=== PATIENT | male | born 1980 | race Hispanic/Latino ===

== ENCOUNTER 2018-05-13 07:45 | Emergency (ER) | payer SELFPAY ==
[2018-05-13] MEDS ORDERED: NA CHLORIDE 0.9% 1,000 ML ONE (08:18)
[2018-05-13 08:56] LABS: Absolute Lymphocytes (CBC) 2.2 K/uL (0.7-4.9); Absolute Monocytes 0.6 K/uL (0.1-1.3); Absolute Neutrophil 7.3 K/uL (1.8-8.0); Basophils % 0.5 % (0-1.3); Eosinophils % 2.1 % (0-4.4); Hematocrit 44.1 % (39.6-49.0); Lymphocytes % 21.4 % (15.3-44.8); MCH 29.9 pg (27.0-35.0); MCV 86.1 fL (80-100); MPV 8.2 fL (7.6-11.3); Monocytes % 5.8 % (3.3-12.3); RBC Red Blood Cell Count 5.12 M/uL (4.33-5.43)
[2018-05-13] MEDS ORDERED: BUPIVACAINE 0.5% PF 10 ML VIAL ONE (09:07)
[2018-05-13] MEDS ORDERED: LIDOCAINE 1% W/EPI 1:100,000 MDV 50 ML VIAL ONE (09:08)
[2018-05-13] MEDS ORDERED: MORPHINE 4 MG/ML SYR ONE (09:10)
[2018-05-13] MEDS ORDERED: ONDANSETRON 4 MG/2 ML VIAL ONE (09:11)
[2018-05-13] MEDS ORDERED: SMZ./TMP. 800/160 MG TABLET ONE (09:37)
--- NOTE | 2018-05-13 09:37 | EDPHYS ---
Physician Documentation [facility] Name: Johnathan Tracey Age: 37 yrs Sex: Male : 1980 Arrival Date: 05/13/2018 Time: 07:49 Bed 15 Private MD: None, None ED Physician Jamaal Pastor HPI: 05/13 08:05 This 37 yrs old Male presents to ER via Ambulatory with complaints of Abscess. cp 08:05 The patient presents with an abscess of the buttocks, The patient presents with cp cellulitis of the buttocks. 08:05 Onset: The symptoms/episode began/occurred yesterday. cp 08:05 Associated signs and symptoms: Pertinent positives: discharge, swelling, Pertinent cp negatives: fever. Historical: - Allergies: 07:57 No Known Allergies; hj - Home Meds: 07:57 Omeprazole Oral [Active]; hj - PMHx: 07:57 GERD; hj - PSHx: 07:57 None; hj - Immunization history:: Adult Immunizations up to date. - Social history:: Smoking status: Patient/guardian denies using tobacco, Patient uses alcohol, occasionally. - Ebola Screening: : Patient negative for fever greater than or equal to 101.5 degrees Fahrenheit, and additional compatible Ebola Virus Disease symptoms Patient denies exposure to infectious person Patient denies travel to an Ebola-affected area in the 21 days before illness onset. ROS: 08:10 Constitutional: Negative for body aches, chills, poor PO intake. cp 08:10 Eyes: Negative for injury, pain, redness, and discharge. cp Exam: 08:15 Constitutional: The patient appears in no acute distress, alert, awake, non-toxic, well cp developed, well nourished. 08:15 Head/Face: Normocephalic, atraumatic. cp 08:15 Eyes: Periorbital structures: appear normal, Conjunctiva: normal, no exudate, no injection, Lids and lashes: appear normal, bilaterally. 08:15 ENT: External ear(s): are unremarkable, Nose: is normal, Mouth: is normal, Posterior pharynx: is normal, airway is patent. 08:15 Chest/axilla: Inspection: normal. 08:15 Cardiovascular: Rate: normal. 08:15 Respiratory: the patient does not display signs of respiratory distress, Respirations: normal, no use of accessory muscles, no retractions, no splinting, no tachypnea. 08:15 Abdomen/GI: Inspection: abdomen appears normal, Palpation: abdomen is soft and non-tender, in all quadrants. 08:15 Skin: abscess, that is small, of the right medial buttock, with induration, with surrounding cellulitis, that is mild. Vital Signs: 07:59 BP 135 / 86; Pulse 83; Resp 18; Temp 98.4; Pulse Ox 97% on R/A; Weight 129.27 kg; hj Height 5 ft. 9 in. (175.26 cm); Pain 10/10; 09:00 BP 125 / 75; Pulse 78; Resp 16; Pulse Ox 99% on R/A; Pain 10/10; jb4 09:56 BP 133 / 81; Pulse 88; Resp 18; Pulse Ox 99% on R/A; Pain 8/10; jb4 07:59 Body Mass Index 42.09 (129.27 kg, 175.26 cm) Procedures: 09:30 I \T\ D: Incision and drainage was performed for an abscess of the right buttocks Prepped cp with Betadine, Anesthetized with 6 ccs of 50/50 mixture 1% lidocaine with epi and 0.5% marcaine. Incised with #11 blade. Drained small amount purulent fluid. bloody fluid. Cultures obtained. Packed with iodoform gauze, Dressing: sterile 4x4 gauze, the patient tolerated the procedure well. MDM: 07:56 Patient medically screened. 09:35 Data reviewed: vital signs, nurses notes, lab test result(s). 09:35 Counseling: I had a detailed discussion with the patient and/or guardian regarding: the historical points, exam findings, and any diagnostic results supporting the discharge/admit diagnosis, lab results, to return to the emergency department if symptoms worsen or persist or if there are any questions or concerns that arise at home. 05/13 08:11 Order name: CBC with Diff; Complete Time: 09:48 cp 05/13 08:11 Order name: BMP; Complete Time: 09:48 cp 05/13 09:48 Interpretation: Normal except: GLUC 115; GFR 76. cp 05/13 08:11 Order name: US Extrmty Nonvasular Limited: right buttock for possible abscess; Complete cp Time: 09:59 05/13 09:59 Interpretation: Report reviewed. 05/13 09:37 Order name: Wound Culture 05/13 08:11 Order name: IV; Complete Time: 08:30 05/13 08:57 Order name: I\T\D Setup; Complete Time: 09:03 cp 05/13 09:27 Order name: Wound dressing; Complete Time: 09:29 cp Administered Medications: 08:30 Drug: NS 0.9% 1000 ml Route: IV; Rate: 1 bolus; Site: left forearm; hj 09:45 Follow up: IV Status: Completed infusion hj 09:10 Drug: Marcaine (0.5 %) 5 ml Volume: 10 ml; Route: Infiltration; tw2 09:10 Drug: Lidocaine-Epinephrine -1%: (1:100,000) 5 ml Volume: 20 ml; Route: Infiltration; tw2 09:10 Drug: morphine 2 mg Route: IVP; Site: left forearm; tw2 09:30 Follow up: Response: No adverse reaction; Pain is decreased hj 09:10 Drug: Zofran 4 mg Route: IVP; Site: left forearm; tw2 09:30 Follow up: Response: No adverse reaction; Nausea is decreased hj 09:30 Drug: Clindamycin 900 mg Route: IVPB; Infused Over: 30 mins; Site: left forearm; hj 09:45 Follow up: IV Status: Completed infusion hj 09:30 Drug: Bactrim (160 mg-800 mg (DS) 1 tablet Route: PO; hj 09:45 Follow up: Response: No adverse reaction Disposition: 20:45 Co-signature as Attending Physician, Jamaal Pastor MD I agree with the assessment and wa plan of care. Disposition: 05/13/18 09:36 Discharged to Home. Impression: Cutaneous abscess of buttock - Right, Cellulitis of buttock - Right. - Condition is Stable. - Discharge Instructions: Skin Abscess, Cellulitis, Adult, Incision and Drainage. - Prescriptions for Clindamycin HCl 300 mg Oral Capsule - take 1 capsule by ORAL route every 6 hours for 10 days; 40 capsule. Bactrim DS 800- 160 mg Oral Tablet - take 1 tablet by ORAL route every 12 hours for 10 days; 20 tablet. Tylenol- Codeine #3 300-30 mg Oral Tablet - take 2 tablets by ORAL route every 6 hours As needed; 15 tablet. - Work release form, Medication Reconciliation Form, Thank You Letter, Antibiotic Education, Prescription Opioid Use form. - Follow up: Private Physician; When: 24 Hours; Reason: Wound Recheck. - Problem is new. - Symptoms have improved. Signatures: Dispatcher [employer] EDMS Andrea Lizarraga RN RN hj Cesaar Gaspar PA PA cp Alison Best RN RN tw2 Richi Serrano RN RN jb4 Jamaal Pastor MD MD co Corrections: (The following items were deleted from the chart) 08:09 08:09 This 37 yrs old Male presents to ER via Ambulatory with complaints of cp Abscess. cp 10:29 09:36 05/13/2018 09:36 Discharged to Home. Impression: Cutaneous abscess of buttock - jb4 Right; Cellulitis of buttock - Right. Condition is Stable. Forms are Medication Reconciliation Form, Thank You Letter, Antibiotic Education, Prescription Opioid Use. Follow up: Private Physician; When: 24 Hours; Reason: Wound Recheck. Problem is new. Symptoms have improved. cp
--- NOTE | 2018-05-13 09:37 | ER ---
Nurse's Notes [facility] Name: Johnathan Tracey Age: 37 yrs Sex: Male : 1980 Arrival Date: 05/13/2018 Time: 07:49 Bed 15 Private MD: None, None Diagnosis: Cutaneous abscess of buttock-Right;Cellulitis of buttock-Right Presentation: 05/13 07:54 Presenting complaint: Patient states: i noticed an abscess on the upper part of my R hj butt cheek near the tail bone yesterday, i tried popping it, it oozed puss a little bit but its getting hard; reports chills last night; pain is 10/10; states a gold ball size abscess;. Transition of care: patient was not received from another setting of care. Onset of symptoms was May 12, 2018. Risk Assessment: Do you want to hurt yourself or someone else? Patient reports no desire to harm self or others. Initial Sepsis Screen: Does the patient meet any 2 criteria? No. Patient's initial sepsis screen is negative. Does the patient have a suspected source of infection? Yes: Skin breakdown/wound. Care prior to arrival: None. 07:54 Method Of Arrival: Ambulatory 07:54 Acuity: ZION 3 hj Triage Assessment: 07:57 General: Appears in no apparent distress. uncomfortable, Behavior is calm, cooperative, hj appropriate for age. Pain: Complains of pain in buttocks Pain currently is 10 out of 10 on a pain scale. EENT: No signs and/or symptoms were reported regarding the EENT system. Neuro: Cardiovascular: Capillary refill < 3 seconds Patient's skin is warm and dry. Respiratory: Airway is patent Respiratory effort is even, unlabored, Respiratory pattern is regular, symmetrical. GI: No signs and/or symptoms were reported involving the gastrointestinal system. : No signs and/or symptoms were reported regarding the genitourinary system. Derm: Abscess located on buttocks Reports pain that is 10 out of 10 on a pain scale. Historical: - Allergies: 07:57 No Known Allergies; hj - Home Meds: 07:57 Omeprazole Oral [Active]; hj - PMHx: 07:57 GERD; hj - PSHx: 07:57 None; hj - Immunization history:: Adult Immunizations up to date. - Social history:: Smoking status: Patient/guardian denies using tobacco, Patient uses alcohol, occasionally. - Ebola Screening: : Patient negative for fever greater than or equal to 101.5 degrees Fahrenheit, and additional compatible Ebola Virus Disease symptoms Patient denies exposure to infectious person Patient denies travel to an Ebola-affected area in the 21 days before illness onset. Screenin:57 Abuse screen: Denies threats or abuse. Denies injuries from another. Nutritional hj screening: No deficits noted. Tuberculosis screening: No symptoms or risk factors identified. Fall Risk None identified. Assessment: 08:00 General: Appears in no apparent distress. uncomfortable, Behavior is calm, cooperative, jb4 appropriate for age. Pain: Complains of pain in gluteal cleft Pain radiates to coccyx Pain currently is 10 out of 10 on a pain scale. at worst was 10 out of 10 on a pain scale. Quality of pain is described as pinching, Pain began 2-3 days ago. Is continuous. Neuro: Level of Consciousness is awake, alert, obeys commands, Oriented to person, place, time, situation. Cardiovascular: Heart tones S1 S2 present Patient's skin is warm and dry. Respiratory: Airway is patent is compromised Respiratory effort is even, unlabored, Respiratory pattern is regular, symmetrical, Breath sounds are clear bilaterally. GI: Abdomen is obese, Bowel sounds present X 4 quads. Abd is soft and non tender X 4 quads. : No signs and/or symptoms were reported regarding the genitourinary system. EENT: No signs and/or symptoms were reported regarding the EENT system. Derm: Abscess located on gluteal cleft is golf ball sized, has no drainage, is hot to touch, is red, Reports pain that is 10 out of 10 on a pain scale. Musculoskeletal: Circulation, motion, and sensation intact. 09:05 Reassessment: Patient and/or family updated on plan of care and expected duration. Pain hj level reassessed. Patient is alert, oriented x 3, equal unlabored respirations, skin warm/dry/pink. Provider at the bedside. Pt is resting in bed with family at the bedside. 09:30 Reassessment: Patient and/or family updated on plan of care and expected duration. Pain jb4 level reassessed. Patient is alert, oriented x 3, equal unlabored respirations, skin warm/dry/pink. Pt reports feeling better and that the pain medicine helped. No complaints of nausea. Vital Signs: 07:59 BP 135 / 86; Pulse 83; Resp 18; Temp 98.4; Pulse Ox 97% on R/A; Weight 129.27 kg; hj Height 5 ft. 9 in. (175.26 cm); Pain 10/10; 09:00 BP 125 / 75; Pulse 78; Resp 16; Pulse Ox 99% on R/A; Pain 10/10; jb4 09:56 BP 133 / 81; Pulse 88; Resp 18; Pulse Ox 99% on R/A; Pain 8/10; jb4 07:59 Body Mass Index 42.09 (129.27 kg, 175.26 cm) ED Course: 07:49 Patient arrived in ED. mr 07:49 None, None is Private Physician. mr 07:53 Andrea Lizarraga, RN is Primary Nurse. hj 07:56 Triage completed. hj 07:56 Ceasar Gaspar PA is PHCP. cp 07:56 Jamaal Pastor MD is Attending Physician. cp 07:58 Arm band placed on right wrist. hj 07:58 Patient has correct armband on for positive identification. Bed in low position. Call light in reach. Side rails up X 1. Adult w/ patient. 08:30 Initial lab(s) drawn, by me, sent to lab. Inserted saline lock: 22 gauge in left jb4 forearm, using aseptic technique. Blood collected. 08:41 US Extrmty Nonvasular Limited: right buttock for possible abscess In Process EDMS Unspecified. 08:46 Ultrasound completed. Note: DONE PORTABLE/BEDSIDE. aa4 09:00 Wound culture swab sent to lab. jb4 10:26 No provider procedures requiring assistance completed. jb4 10:26 IV discontinued, intact, bleeding controlled. jb4 Administered Medications: 08:30 Drug: NS 0.9% 1000 ml Route: IV; Rate: 1 bolus; Site: left forearm; hj 09:45 Follow up: IV Status: Completed infusion hj 09:10 Drug: Marcaine (0.5 %) 5 ml Volume: 10 ml; Route: Infiltration; tw2 09:10 Drug: Lidocaine-Epinephrine -1%: (1:100,000) 5 ml Volume: 20 ml; Route: Infiltration; tw2 09:10 Drug: morphine 2 mg Route: IVP; Site: left forearm; tw2 09:30 Follow up: Response: No adverse reaction; Pain is decreased hj 09:10 Drug: Zofran 4 mg Route: IVP; Site: left forearm; tw2 09:30 Follow up: Response: No adverse reaction; Nausea is decreased hj 09:30 Drug: Clindamycin 900 mg Route: IVPB; Infused Over: 30 mins; Site: left forearm; hj 09:45 Follow up: IV Status: Completed infusion hj 09:30 Drug: Bactrim (160 mg-800 mg (DS) 1 tablet Route: PO; hj 09:45 Follow up: Response: No adverse reaction hj Outcome: 09:36 Discharge ordered by MD. cp 10:28 Discharged to home ambulatory. jb4 10:28 Condition: stable 10:28 Discharge instructions given to patient, family, Instructed on discharge instructions, follow up and referral plans. medication usage, wound care, Demonstrated understanding of instructions, follow-up care, medications, wound care, Prescriptions given X 3. 10:29 Patient left the ED. jb4 Signatures: Dispatcher [employer] EDIA Jenise Alvarado mr WilloughbyTrice aa4 Andrea Lizarraga, RN RN hj Ceasar Gaspar PA PA cp Wise, Tara, RN RN tw2 Richi Serrano, RN RN jb4 Corrections: (The following items were deleted from the chart) 09:51 09:05 Reassessment: Patient and/or family updated on plan of care and expected hj duration. Pain level reassessed. Patient is alert, oriented x 3, equal unlabored respirations, skin warm/dry/pink. Provider at the bedside. Pt is resting in bed with family at the bedside. jb4 09:56 09:50 Reassessment: Patient and/or family updated on plan of care and expected hj duration. Pain level reassessed. Patient is alert, oriented x 3, equal unlabored respirations, skin warm/dry/pink. Pt reports a decrease in pain with no nausea. Patient states feeling better. 09:56 09:30 Reassessment: Patient is alert, oriented x 3, equal unlabored respirations, skin hj warm/dry/pink. Pt reports a decrease in pain with no nausea. Patient states feeling better. hj 09:58 09:50 BP 133 / 81; Pulse 88bpm; Resp 16bpm; Pulse Ox 99% RA; Pain 8/10; hj hj 09:58 09:30 Reassessment: Patient and/or family updated on plan of care and expected hj duration. Pain level reassessed. Patient is alert, oriented x 3, equal unlabored respirations, skin warm/dry/pink. Pt reports a decrease in pain with no nausea. Patient states feeling better. hj
[2018-05-13] MEDS ORDERED: CLINDAMYCIN 900MG/D5W 900 MG/50 ML BAG IV ONE (09:38)
[2018-05-13 09:44] LABS: Potassium 3.7 mmol/L (3.5-5.1)
--- NOTE | 2018-05-13 09:57 | RAD REPORT ---
EXAM DESCRIPTION: US - Extremity Nonvascular Limited - 05/13/2018 8:56 am CLINICAL HISTORY: Pain;Swelling COMPARISON: No comparisons TECHNIQUE: Real-time sonographic evaluation of the area of interest right buttock was performed. FINDINGS: Edematous skin and subcutaneous tissues are noted. A small subcutaneous complex fluid martín ection measuring 8 x 6 mm is present beneath the skin surface, suspicious for a small abscess.
== END 2018-05-13 10:29 | disposition home or self-care (01) ==
LOC: ER 07:45
PROC: 0H98XZZ Drainage of Buttock Skin, External Approach (ICD-10-PCS; principal; 2018-05-13)
DX: L02.31 Cutaneous abscess of buttock (principal); L03.317 Cellulitis of buttock
CPT/HCPCS: 36415; 76882; 80048; 85025; 87070; 87205; 96361; 96374; 96375; 99284; J2405; J7030